=== PATIENT | female | born 1995 | race Caucasian/White ===

== ENCOUNTER 2021-11-09 14:32 | Emergency (ER) | payer OTHER, SELFPAY ==
[2021-11-09 15:13] VITALS: BP 134/98; PULSE 80; RESP 20; TEMP 36; O2SAT 95; BMI 24.2
--- NOTE | 2021-11-09 16:57 | ED.ALLEREA ---
HPI - Allergic Reaction General Chief complaint: Allergic Reaction Stated complaint: allergic reaction? Time Seen by Provider: 11/09/21 16:40 Source: patient Mode of arrival: ambulatory Limitations: no limitations History of Present Illness HPI narrative: 25 y/o female presenting with diffuse pruritic rash all over her body for the last 2.5 days. It has been waxing and waning and she has been taking Benadryl 50 mg every 4-6 hours. She reports today when she woke up she had the rash on her face and her right ear was swollen, almost to the point where it was shut she could not hear. She reports this afternoon she started feeling tingling in her throat. She denies any sensation of throat swelling and she has no lip or tongue swelling. She denies any history of allergies or reactions like this in the past. She denies any new soaps, detergents, lotions, creams. She has not slept anywhere but her own bed. No new foods. MD complaint: allergic reaction and hives Onset (ago): day(s) (2.5 ) Exposure: unknown Symptoms: rash, itching and facial swelling Severity: severe Treatment prior to arrival: benadryl Previous Allergic Reaction History: none Related Data Previous Rx's Medication Instructions Recorded famotidine 40 mg tablet (Pepcid) 40 mg PO DAILY #10 tab 11/09/21 prednisone 50 mg tablet 50 mg PO DAILY #7 tab 11/09/21 Allergies Allergy/AdvReac Type Severity Reaction Status Date / Time lactose Allergy Unknown Uncoded 05/18/18 00:00 Review of Systems Review of Systems: Constitutional: No Fever, No Chills ENT/Mouth: No sore throat, No Rhinorrhea, No Swallowing Difficulty, +ear pain & swelling Eyes: No Eye Pain, + Swelling, No Redness Cardiovascular: No Chest Pain, No SOB Respiratory: No Cough, No Sputum, No Wheezing, No dyspnea Gastrointestinal: No Nausea, No Vomiting, No Diarrhea, No abdominal Pain Genitourinary: No Dysuria, No Urinary Frequency, No Hematuria Musculoskeletal: No joint pain, No Myalgias Skin: No Skin Lesions, + rash Neuro: No Weakness, No Numbness, No Dizziness, No Headache Heme/Lymph: No Bruising, No Lymphadenopathy PMFSH Past Medical History Medical History (Updated 11/09/21 @ 17:25 by DORA Paniagua) Raynaud disease Surgical History (Updated 11/09/21 @ 15:17 by Aleshia Osei) H/O wisdom tooth extraction Social History Social History Advance Directives: No Advance Directives Information Provided: Yes Patient : No Physical Exam Vital Signs: Vital Signs: Last Vital Signs Temp 96.8 F 11/09/21 15:13 Pulse 80 11/09/21 15:13 Resp 20 11/09/21 15:13 BP 134/98 H 11/09/21 15:13 Pulse Ox 95 11/09/21 15:13 BMI result Body Mass Index 24.2 Appearance: Alert. Oriented X3. No acute distress. Eyes: Upper eyelids is puffy bilaterally. Pupils equal, round and reactive to light. EOMI. ENT: Pharynx normal. No swelling of the lips, tongue. Airway patent. Pain of the right ear with some mild swelling. Normal TMs bilaterally. Neck: Normal inspection. Neck supple. CVS: Normal heart rate and rhythm. Pulses normal. Respiratory: No respiratory distress. Breath sounds normal. Skin: Skin warm and dry. Normal skin color. Normal skin turgor. There is a diffuse urticarial type rash all over her trunk, bilateral upper extremities and lower extremities. Extremities: No lower extremity edema. Extensive urticarial rash on the lower and upper extremities. Neuro: Oriented X 3. Grossly normal, nonfocal Course Course Course Narrative: 25-year-old female presenting with allergic reaction that has been waxing and waning for the last 2 and half days. Today she started feeling sensation of throat tingling. She is in no respiratory distress and protecting her airway. No signs of airway edema or swelling. Given the extent of her rash in her current symptoms will still place an IV and give IV steroids, Benadryl, Pepcid. Will monitor closely in the emergency room. Reevaluation(s) Reevaluation #1: Significant improvement in her rash. She no longer has sensation of any tingling in her throat. At this time patient is stable for discharge home with prescription for prednisone, Pepcid and continued Benadryl around the clock. Encouraged to f/u with her PCP. Stable for DC. Critical Care Time Critical Care Time Critical Care Time: Yes Total Critical Care Time: 38 Attestation: I have personally provided critical care time exclusive of time spent on separately billable procedures. Time includes review of lab data, radiology results, frequent bedside re-evaluation, and monitoring for potential decompensation. Intervention performed as documented. Discharge Plan Discharge Clinical Impression: Urticaria Allergic reaction Qualifiers: Encounter type: initial encounter Qualified Code(s): T78.40XA - Allergy, unspecified, initial encounter Patient Disposition: Home, Self-Care Instructions: Urticaria (ED), General Allergic Reaction (ED) Additional Instructions: Take the prescribed steroid medication for your allergic reaction. Continue to take Benadryl 50 mg every 6 hours. Recommend also adding Pepcid, sent to your pharmacy as well. If you develop new or worsening symptoms call 911 or come back to the ER for further evaluation. Prescriptions: New prednisone 50 mg tablet 50 mg PO DAILY Qty: 7 RF: 0 famotidine [Pepcid] 40 mg tablet 40 mg PO DAILY Qty: 10 RF: 0
[2021-11-09] MEDS: diphenhydrAMINE HCL 50 MG/ML VIAL IVPUSH (17:14)
[2021-11-09] MEDS: methylPREDNISolone Sod Succ 125 MG/2 ML VIAL IVPUSH (17:14)
[2021-11-09] MEDS: Famotidine/PF 20 MG/2 ML VIAL IVPUSH (17:14)
== END 2021-11-09 18:47 | disposition home or self-care (01) ==
PROVIDERS: Emergency Provider Internal Medicine; PCP Family Medicine
DX: T78.40XA Allergy, unspecified, initial encounter (principal); L50.9 Urticaria, unspecified; X58.XXXA Exposure to other specified factors, initial encounter
CPT/HCPCS: 96374; 96375; 99283; 99291; J1200; J2930

== ENCOUNTER 2022-01-11 07:10 | Outpatient (REF) | payer OTHER, SELFPAY ==
[2022-01-11 07:35] LABS: MANUAL DIFF FLAG NO
[2022-01-11 07:45] LABS: Basophils Absolute Auto 0.1 X10*3/uL (0.0-0.2); Basophils Percent Auto 1.3 % (0-2); Eosinophils Absolute Auto 0.2 X10*3/uL (0.0-0.4); Eosinophils Percent Auto 2.5 % (0-4); Hemoglobin 13.5 g/dl (12.0-16.0); Imm Gran Abs Auto 0.02 X10*3/uL (0.00-0.03); Imm Gran Pct Auto 0.3 % (0.0-0.4); Lymphocytes Absolute Auto 1.9 X10*3/uL (1.2-4.9); Lymphocytes Percent Auto 27.3 % (20-40); Mean Corpuscular HGB Conc 32.9 g/dl (31.0-35.0); Mean Corpuscular Hemoglobin 30.4 pg (27.0-33.0); Mean Corpuscular Volume 92.3 fL (80.0-98.0); Mean Platelet Volume 10.6 fL (9.4-12.3); Monocytes Absolute Auto 0.6 X10*3/uL (0.1-1.2); Monocytes Percent Auto 8.5 % (2-11); Neutrophils Absolute Auto 4.2 x10*3/uL (2.0-8.3); Neutrophils Percent Auto 60.1 % (45-73); Platelet Count 237 X10*3/uL (160-400); Red Blood Count 4.44 X10*6/uL (4.20-5.50); White Blood Count 6.9 X10*3/uL (4.8-10.8)
[2022-01-11 08:20] LABS: Alanine Aminotransferase 10 U/L (0-31); Albumin Level 4.5 g/dL (3.5-5.0); Alkaline Phosphatase 53 U/L (39-117); Anion Gap 15 (12-20); Aspartate Amino Transferase 16 U/L (5-31); Bilirubin Total 2.1 mg/dL (0.0-1.0); Blood Urea Nitrogen 12 mg/dL (9-16); Calcium 9.5 mg/dL (8.4-10.2); Carbon Dioxide 23 mmol/L (22-29); Chloride 107 mmol/L (96-108); Cholesterol 168 mg/dL; Estimated Glomerular Filt Rate > 60; Glucose Fasting 89 mg/dL (60-99); HDL Cholesterol 79 mg/dL; LDL Cholesterol Calculated 75 mg/dl; Potassium 4.4 mmol/L (3.3-5.1); Rheumatoid Factor < 15.0 IU/mL (<15.0); Sodium 141 mmol/L (135-145); Total Protein 7.7 g/dL (6.5-8.0); Triglycerides 72 mg/dL
[2022-01-11 08:26] LABS: Erythrocyte Sedimentation Rate 2 MM/HR (0-20)
[2022-01-11 08:38] LABS: Syphilis Screen Nonreactive (Nonreactive)
[2022-01-11 08:39] LABS: HBS Num1 35.26 mIU/mL (0-7.99); HBc Num1 0.08 S/CO (0.00-0.79); Hepatitis B Core Antibody Nonreactive (Nonreactive); ~HepC Num1 0.29 S/CO (0.00-0.79); ~Hepatitis B Surface Antibody REACTIVE (Nonreactive); ~Hepatitis C Antibody Nonreactive (Nonreactive)
[2022-01-11 08:43] LABS: HBsAGNum1 0.19 S/CO (0.00-0.99); HIV AB/AG Nonreactive (Nonreactive); HIV Num 1 0.05 S/CO (0.00-0.99); Hepatitis B Surface Antigen Negative (Negative)
[2022-01-11 08:45] LABS: TSH reflex Free T4 1.89 uIU/mL (0.32-4.0)
[2022-01-13 16:22] LABS: Cyclic Citrullinated Peptide <16 UNITS
[2022-01-13 18:06] LABS: CRP High Sensitivity 0.3 mg/L
== END 2022-01-11 07:11 | disposition home or self-care (01) ==
LOC: HO.LAB 07:10
PROVIDERS: PCP Family Medicine; Visit Provider Family Medicine
DX: Z00.00 Encounter for general adult medical examination without abnormal findings (principal); Z11.3 Encounter for screening for infections with a predominantly sexual mode of transmission; Z11.4 Encounter for screening for human immunodeficiency virus [HIV]; T78.40XA Allergy, unspecified, initial encounter; Z82.61 Family history of arthritis
CPT/HCPCS: 36415; 80053; 80061; 84443; 85025; 85652; 86141; 86200; 86431; 86704; 86706; 86780; 86803; 87340; 87389

== ENCOUNTER 2022-01-19 15:09 | Outpatient (REF) | payer OTHER, SELFPAY ==
[2022-01-19 16:02] LABS: Appearance Urine CLEAR; Color Urine YELLOW; Glucose Urine UA NEG (NEG); Leukocyte Esterase Urine 1+ (NEG); Nitrite Urine NEG (NEG); PH 6.5 (5.0-8.0); Specific Gravity - Urine <= 1.005 (1.005-1.025); Urine Blood 3+ (NEG); Urine Ketones 5 MG/DL (NEG); Urine Protein NEG (NEG-TRACE)
[2022-01-19 16:20] LABS: Bacteria Urine 2+ /LPF; Squamous Epithelial Cell Urine 3+ /LPF
== END 2022-01-19 15:10 | disposition home or self-care (01) ==
LOC: HO.LAB 15:09
PROVIDERS: PCP Family Medicine; Visit Provider Family Medicine
DX: Z00.00 Encounter for general adult medical examination without abnormal findings (principal)
CPT/HCPCS: 81001; 81003

== ENCOUNTER 2022-01-27 15:36 | Outpatient (REF) | payer OTHER, SELFPAY ==
[2022-01-27 16:39] LABS: Alanine Aminotransferase 11 U/L (0-31); Albumin Level 4.6 g/dL (3.5-5.0); Alkaline Phosphatase 49 U/L (39-117); Anion Gap 12 (12-20); Aspartate Amino Transferase 13 U/L (5-31); Bilirubin Total 1.6 mg/dL (0.0-1.0); Blood Urea Nitrogen 7 mg/dL (9-16); Calcium 10.1 mg/dL (8.4-10.2); Carbon Dioxide 26 mmol/L (22-29); Chloride 106 mmol/L (96-108); Estimated Glomerular Filt Rate > 60; Glucose Random 115 mg/dL (60-115); Potassium 4.2 mmol/L (3.3-5.1); Sodium 140 mmol/L (135-145); Total Protein 7.4 g/dL (6.5-8.0)
[2022-01-27 17:04] LABS: Appearance Urine CLEAR; Color Urine YELLOW; Glucose Urine UA NEG (NEG); Leukocyte Esterase Urine NEG (NEG); Nitrite Urine NEG (NEG); Specific Gravity - Urine <= 1.005 (1.005-1.025); Urine Blood 1+ (NEG); Urine Ketones 5 MG/DL (NEG); Urine Protein NEG (NEG-TRACE)
[2022-01-27 17:17] LABS: Squamous Epithelial Cell Urine 3+ /LPF; WBC Urine 0 /HPF (0-4)
== END 2022-01-27 15:37 | disposition home or self-care (01) ==
LOC: HO.LAB 15:36
PROVIDERS: PCP Family Medicine; Visit Provider Family Medicine
DX: R17 Unspecified jaundice (principal)
CPT/HCPCS: 36415; 80053; 81001; 81003

== ENCOUNTER 2024-05-29 16:25 | Outpatient (AMB) | payer OTHER, SELFPAY ==
--- NOTE | 2024-05-29 16:24 | MHC.OFFVISPS ---
Intake Intake Visit Reasons: consultation Allergies lactose Allergy (Unknown, Uncoded 05/17/24 16:18) Unknown Medication List - Last Reconciled 05/29/24 by Samantha Azar APRN citalopram 20 mg PO DAILY 30 days hydroxyzine HCl 50 mg PO TID PRN 30 days HPI- Psychiatric Chief Complaint: consultation HPI Narrative: pt is referred by pcp for evaluation of increased depression and anxiety, stress related to work. Denies SI, HI. Pt asked PCP Dr. Jeffery for an FMLA from her job. Pt is currently on medication with some relief. She is not current receiving outpatient services, but is interested in establishing with a therapist. Pt comes to appt today stating she feels a little less overwhelmed since starting citalopram. she reports anxious since childhood; reports dx of ADHD age 6 [address] when in school; she took adderall and ritlain during childhood. she reports she was crying every bight. she was working 2 jobs until rcently taking medical leave. 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 she desribes a histrou of working 4 jobs while in underd=grad school and finishing her degree early and then going to grad school right away and continuing to work 3 jobs; she says she used coffee to stay awake and drank alcohol to go to sleep; she also reports using THC daily until May 17 when she stopped cold turkey; she reports she only drinks socially now 3-4 glasses of wine 3-4 times a week. She has pressured speech n session, makes jokes. she describes mind racing, inability to fall sleep sleeping short periods of time. feeling overwhelmed; she thinks ADHD symptoms are making it hard fro her to function at work; Her PHQ9 = 16.5 snd her GAD7= 13. Past Psychiatric History: tx ADHD outpt as child. Subjective Subjective Subjective Medication Compliance: Yes Side effects from medications: No Review of Systems Medical Review of Systems: unchanged Mental Status Exam Mental Status Exam Patient Appearance: Well Grooomed and Appropriate Patient Orientation: Person, Place, Time and Situation Level of Consciousness: Awake Patient Behavior: Appropriate, Talkative and Cooperative Mood Description: Anxious, Sad and Expansive Affect Description: Cheerful, Anxious and Sad Patient Cognition Impaired: No Ability to Follow Directions: Good Speech Pattern: Rapid Memory Description: Intact Hallucinations: None Delusions: Not Present Thought Process: Racing Thought Content: positive for Loose Associations Judgement: Fair Assessment and Plan Assessment & Plan (1) Difficulty concentrating: Status: Acute Code(s): R41.840 - Attention and concentration deficit (2) Anxiety with depression: Status: Acute Code(s): F41.8 - Other specified anxiety disorders Plan rule out Bipolar Disorder rule out ADHD rule out alcohol induced mood dissorder no changes to meds today discussed rule out Bipolar Disorder with patient gave her education info about bipolar do and mood disorder questionnaire will meet with patient in 2 week to further eval Counseling and coordination of Care Medication management counseling: Effectiveness, Side effects, Dosing range, Duration, Drug interaction and Adherence Diagnosis and Prognosis Counseling: Accuracy of diagnosis, Prognosis over time, Impact of diagnosis on life functions, Impact of family relationship, Problematic behaviors secondary to diagnosis and Adequacy of current interventions Details: I spent 60 minutes reviewing the record, seeing the patient and documenting in the medical record. Counseling provided to the patient/caregiver as outlined below. Addressed patient/caregiver concerns regarding current medication regime including effective adherence. Addressed patient/caregiver concerns regarding diagnosis and prognosis including accuracy of diagnosis, prognosis over time, impact of diagnosis. Addressed patient/caregiver concerns regarding impact of recent stressors. 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[employer] Current occupational exposures/hazards: No Cognitive needs: No Hearing needs: No Vision needs: Yes Social History: lives with brother and his partner and her BF Substance History: ETOH age 18- present 2-3 glasses of wine and gin cocktails mostly to sleep per pt; THC daily until May 17 2024 Trauma History: very difficult childhood - mother with depression Coding Level of Care Code Psych Diag Eval w/Med (36269) Diagnoses Difficulty concentrating R41.840 Anxiety with depression F41.8
== END 2024-05-29 17:44 | disposition home or self-care (01) ==
PROVIDERS: PCP Family Medicine; Visit Provider Clinical Nurse Specialist Psychiatric/Mental Health
DX: F41.8 Other specified anxiety disorders (principal); R41.840 Attention and concentration deficit
CPT/HCPCS: 99205

== ENCOUNTER → 2024-05-29 16:25 | Outpatient (BNVA) | payer OTHER, SELFPAY | PROVIDERS: PCP Family Medicine; Visit Provider Clinical Nurse Specialist Psychiatric/Mental Health ==

== ENCOUNTER 2024-06-12 11:45 | Outpatient (REF) | payer OTHER, SELFPAY ==
[2024-06-12 12:05] LABS: MANUAL DIFF FLAG NO
[2024-06-12 12:47] LABS: Basophils Absolute Auto 0.1 X10*3/uL (0.0-0.2); Basophils Percent Auto 1.6 % (0-2); Eosinophils Absolute Auto 0.1 X10*3/uL (0.0-0.4); Eosinophils Percent Auto 2.2 % (0-4); Hematocrit 38.1 % (37.0-47.0); Hemoglobin 12.9 g/dl (12.0-16.0); Imm Gran Abs Auto 0.01 X10*3/uL (0.00-0.03); Imm Gran Pct Auto 0.2 % (0.0-0.4); Lymphocytes Absolute Auto 1.5 X10*3/uL (1.2-4.9); Lymphocytes Percent Auto 26.6 % (20-40); Mean Corpuscular HGB Conc 33.9 g/dl (31.0-35.0); Mean Corpuscular Hemoglobin 29.3 pg (27.0-33.0); Mean Corpuscular Volume 86.4 fL (80.0-98.0); Mean Platelet Volume 10.6 fL (9.4-12.3); Monocytes Absolute Auto 0.5 X10*3/uL (0.1-1.2); Monocytes Percent Auto 8.3 % (2-11); Neutrophils Absolute Auto 3.4 x10*3/uL (2.0-8.3); Neutrophils Percent Auto 61.1 % (45-73); Platelet Count 202 X10*3/uL (160-400); Red Blood Count 4.41 X10*6/uL (4.20-5.50); Red Cell Distribution Width 12.7 % (11.0-16.0); White Blood Count 5.6 X10*3/uL (4.8-10.8)
[2024-06-12 13:12] LABS: Appearance Urine Clear; Color Urine Yellow; Glucose Urine UA Negative (Negative); Leukocyte Esterase Urine Small (1+) (Negative); Nitrite Urine Negative (Negative); PH 6.5 (5.0-9.0); Specific Gravity - Urine 1.015 (1.005-1.025); UMIC TRIGGER UA YES; Urine Blood Negative (Negative); Urine Ketones Negative (Negative); Urine Protein Negative (Neg-Trace)
[2024-06-12 13:21] LABS: Bacteria Urine 2+ (None Seen); Hyaline Casts Urine 0-2 /LPF (0-2); RBC Urine 0-2 /HPF (0-2); WBC Urine 0-5 /HPF (0-5)
[2024-06-12 14:08] LABS: Alanine Aminotransferase 31 U/L (0-31); Albumin Level 4.4 g/dL (3.5-5.0); Alkaline Phosphatase 46 U/L (39-117); Anion Gap 11 (12-20); Aspartate Amino Transferase 21 U/L (5-31); Bilirubin Total 1.3 mg/dL (0.0-1.0); Blood Urea Nitrogen 8 mg/dL (9-16); Calcium 9.5 mg/dL (8.4-10.2); Carbon Dioxide 26 mmol/L (22-29); Chloride 107 mmol/L (96-108); Cholesterol 182 mg/dL (<200); Estimated Glomerular Filt Rate > 60; Glucose Fasting 90 mg/dL (60-99); HDL Cholesterol 72 mg/dL (>40); LDL Cholesterol Calculated 97 mg/dL (<100); Potassium 4.1 mmol/L (3.3-5.1); Sodium 140 mmol/L (135-145); TSH reflex Free T4 1.67 uIU/mL (0.32-4.0); Total Protein 7.2 g/dL (6.5-8.0); Triglycerides 65 mg/dL (<150); Vitamin D 25-OH Total 17.2 ng/mL (>30)
[2024-06-12 14:20] LABS: Creatinine Urine 177.89 mg/dL; Microalbum/Creatinine Ratio Ur 3.3 ug/mg cr (<30)
[2024-06-12 14:25] LABS: Folate 5.7 ng/mL (> or = 4.0); Vitamin B12 402 pg/mL (200-900)
== END 2024-06-12 11:46 | disposition home or self-care (01) ==
LOC: HO.LAB 11:45
PROVIDERS: PCP Family Medicine; Visit Provider Family Medicine
DX: Z00.00 Encounter for general adult medical examination without abnormal findings (principal); I10 Essential (primary) hypertension; E53.8 Deficiency of other specified B group vitamins; E55.9 Vitamin D deficiency, unspecified
CPT/HCPCS: 36415; 80053; 80061; 81001; 81003; 82043; 82306; 82570; 82607; 82746; 84443; 85025

== ENCOUNTER 2024-06-14 09:14 | Outpatient (AMB) | payer OTHER, SELFPAY ==
--- NOTE | 2024-06-14 09:18 | A.OFFPSYCH_ITS ---
Intake Intake Visit Reasons: f/u consultation Failure Analysis Technician Required: No Allergies lactose Allergy (Unknown, Uncoded 05/17/24 16:18) Unknown Medication List - Last Reconciled 06/14/24 by Samantha Azar APRN citalopram 20 mg PO DAILY 30 days hydroxyzine HCl 50 mg PO TID PRN 30 days HPI- Psychiatric Chief Complaint: f/u consultation HPI Narrative: pt reports much calmer overall; less emotionally reactive. reviewed information re: bipolar disorder and feels she does not meet criteria. feels she has better impulse control and less intense ups and downs. pt not sleeping well even with 150mg of hydroxyzine. pt reports increase startle and has a tremors bilat in bernard ds comes and goes- observed today; discussed alcohol use again today; pt drinking much less 2-3 drinks 4-5 times a week but with friends and not alone. she feels she can cut back more on own. discussed option of naltrexone for cravings. she declines at this time. no SI or HI feels she isn't ready to go back to work. Discussed addition of trazodone and magnesium glycinate for sleep and mood Past Psychiatric History: tx ADHD outpt as child. Subjective Subjective Subjective Medication Compliance: Yes Side effects from medications: Yes (possible side effects from celexa ? tremor) Review of Systems Medical Review of Systems: unchanged Mental Status Exam Mental Status Exam Patient Appearance: Well Grooomed and Appropriate Patient Orientation: Person, Place, Time and Situation Level of Consciousness: Awake Patient Behavior: Appropriate Mood Description: Anxious Affect Description: Anxious Patient Cognition Impaired: No Ability to Follow Directions: Fair Speech Pattern: Clear Memory Description: Intact Hallucinations: None Delusions: Not Present Thought Process: Intact Thought Content: positive for Intact Judgement: Fair Assessment and Plan Assessment & Plan (1) Anxiety with depression: Status: Acute Code(s): F41.8 - Other specified anxiety disorders (2) Difficulty concentrating: Status: Acute Code(s): R41.840 - Attention and concentration deficit Plan rule out alcohol abuse; rule out ADHD Medications: New trazodone 50 mg orally Take 1/2 tablet at bedtime as needed ; may take an extra 1/2 if still awake in one hour PRN; 90 tabs 0RF sleep Counseling and coordination of Care Pt. Self Management counseling: Mod caffeine/ETOH intake, Sleep hygiene and General coping skills Medication management counseling: Effectiveness, Side effects, Dosing range, Duration, Drug interaction and Adherence Diagnosis and Prognosis Counseling: Accuracy of diagnosis, Prognosis over time, Impact of diagnosis on life functions, Impact of family relationship, Problematic behaviors secondary to diagnosis and Adequacy of current interventions Details: I spent 40 minutes reviewing the record, seeing the patient and documenting in the medical record. Counseling provided to the patient/caregiver as outlined below. Addressed patient/caregiver concerns regarding current medication regime including effective adherence. Addressed patient/caregiver concerns regarding diagnosis and prognosis including accuracy of diagnosis, prognosis over time, impact of diagnosis. Addressed patient/caregiver concerns regarding impact of recent stressors. 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[employer] Current occupational exposures/hazards: No Cognitive needs: No Hearing needs: No Vision needs: Yes Social History: lives with brother and his partner and her BF Substance History: ETOH age 18- present 2-3 glasses of wine and gin cocktails mostly to sleep per pt; THC daily until May 17 2024 Trauma History: very difficult childhood - mother with depression Coding Level of Care Code Est Pt Level 4 (09576) Therapy 30m w/E&M (48935) Diagnoses Anxiety with depression F41.8 Difficulty concentrating R41.840 Comment motivational interviewing re: alcohol use; problem solving sleep hygiene
== END 2024-06-14 09:48 | disposition home or self-care (01) ==
LOC: HO.HOP 09:14
PROVIDERS: PCP Family Medicine; Visit Provider Clinical Nurse Specialist Psychiatric/Mental Health
DX: F41.8 Other specified anxiety disorders (principal); R41.840 Attention and concentration deficit
CPT/HCPCS: 90833; 99214

== ENCOUNTER → 2024-06-14 09:14 | Outpatient (BNVA) | payer OTHER, SELFPAY | PROVIDERS: PCP Family Medicine; Visit Provider Clinical Nurse Specialist Psychiatric/Mental Health ==

== ENCOUNTER 2024-06-21 11:59 | Outpatient (AMB) | payer OTHER, SELFPAY ==
--- NOTE | 2024-06-21 12:08 | A.OFFPC_ITS ---
Vital Signs 06/21/24 12:16 06/21/24 13:05 Height 5 ft 6.54 in Weight 147 lb BMI 23.3 BP 98/60 120/68 Blood Pressure Location Lt brachial Lt brachial Position Sitting Sitting Respiration 16 Pulse 83 Pulse Source Pulse Oximeter Temp 97.8 F Temp Source Tympanic Pulse Oximetry (%) 98 Oxygen Delivery Method Room Air Intake Visit Reasons: F/U Anxiety/Depression/ FMLA paperwork Intake Note: FMLA PAPERWORK Allergies lactose Allergy (Unknown, Uncoded 05/17/24 16:18) Unknown Medication List - Last Reconciled 06/21/24 by Cal Jeffery MD cholecalciferol (vitamin D3) 1,250 mcg PO QWEEK 28 days citalopram 20 mg PO DAILY 30 days hydroxyzine HCl 50 mg PO TID PRN 30 days trazodone 50 mg orally Take 1/2 tablet at bedtime as needed ; may take an extra 1/2 if still awake in one hour PRN; Tobacco use date assessed: 05/17/24 Dental Screening Dental Screen Date: 05/17/24 HPI F/U Anxiety/Depression/ FMLA paperwork HPI Details 28 y/o female presents to f/u depression /anxiety. Pt had worsening anxiety/depression with likely acute adjustment disorder as well as secondary to severe stressors at work. Had recommended she take a leave of absence from work. She is on citalopram, hydroxyzine, trazodone for mood. She continues to work with psychiatry Samantha Azar. Pt notes she would like to get into therapy before she goes back to work. She is unsure when she will see a therapist. Pt reports some shakiness. HPI Comments History of Present Illness Details Documentation assistance for Cal Jeffery MD, was provided by Lino Hill,? Passenger Train Braker on 06/21/2024 at 12:36 PM EST. I, Dr. Jeffery, have read, observed, and verified documentation. 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[employer] Current occupational exposures/hazards: No Cognitive needs: No Hearing needs: No Vision needs: Yes Questionnaire Thrive Questionnaire Date Thrive assessed: 05/17/24 LULU-7 AMB Questionnaire LULU-7 Date LULU - 7 assessed: 05/17/24 Source: Developed by Drs. Cody Valera, Katty Ramos, Ayan Yi and colleagues, with an educational aggie from [employer]. Review of Systems Const Denies chills, Denies fatigue, Denies fever(s), Denies headache(s) and Denies weakness ENT Denies dizziness and Denies headache(s) Card Denies chest pain, Denies lightheadedness, Denies dyspnea and Denies other (Palpitations) Resp Denies cough, Denies dyspnea, Denies wheezing and Denies other ( shortness of breath) Musc Denies numbness and Denies tingling Neuro Denies dizziness, Denies headache(s), Denies numbness, Denies tingling, Denies paresthesias and Denies weakness Psych Reports anxiety and Reports depression Endo Denies fatigue Aller/Immun Denies wheezing Physical exam (Primary Care) Vital Signs: Last Vital Signs Temp 97.8 F 06/21/24 12:16 Pulse 83 06/21/24 12:16 Resp 16 06/21/24 12:16 BP 98/60 06/21/24 12:16 Pulse Ox 98 06/21/24 12:16 Oxygen Delivery Method Room Air 06/21/24 12:16 BMI result Body Mass Index 23.3 Tobacco/Smoking Status: Tobacco use Status Tobacco use date assessed 05/17/24 06/21/24 12:08 Patient Tobacco Use Status Former Tobacco user 06/21/24 12:08 e-Cigarette/Vaping Use Former Use 06/21/24 12:08 Thrive Assessment: Date of Thrive Assessment Date Thrive assessed 05/17/24 06/21/24 12:08 Const General: no acute distress and well developed Nutritional Appearance: well nourished Orientation/consciousness: patient oriented x3 HENMT Head: Yes normocephalic and Yes atraumatic Eyes General: appearance normal, both eyes and all related structures Pupils: Equal, round and reactive pupils present EOM: EOMs intact bilaterally Resp Effort & Inspection: normal respiratory effort Auscultation: clear to auscultation bilaterally Cardio Rate: regular rate Rhythm: regular rhythm Heart sounds: S1 normal heart sound present, S2 normal heart sound present, no gallops, no murmurs and no rubs Neuro General: patient oriented x3 and gait normal Cranial nerves: Yes Equal, round and reactive pupils present Psych Affect: normal affect Assessment and Plan Assessment & Plan (1) Anxiety with depression: Code(s): F41.8 - Other specified anxiety disorders Plan: Ongoing?anxiety?and?depression. Somewhat?improved,?hydralazine?and?trazodone. She?now?has?a?psych?med?provider?managing?these. Still?not?able?to?function?at?work?and?she?still?does?not?have?a?therapist. Will?keep?her?out?of?work?for?another?2?months?wi th?dates?of?leave?from?05/17/2024?to?08/26/2024?and?anticipated?return?date?08/27. She?will?continue?to?follow?with?her?psych?med?provider?and?should?have?a?therap ist?by?than?as?I?feel?this?is?1?of?the?missing?pieces?of?her?care. Patient?is?not?going?to?bed?until?about?midnight?and?we?did?discuss?that?she?catrachito uld?work?on?sleep?hygiene?habits?and?consider?trying?to?pull?her?bedtime?earlier ?which?should?help?her?get?more?physiologic?sleep?and?feel?better?rested. (2) Shakiness: Code(s): R25.1 - Tremor, unspecified Plan: Improved Will?continue?to?follow Coding Level of Care Code Est Pt Level 3 (08920) Diagnoses Anxiety with depression F41.8 Shakiness R25.1
[2024-06-21 12:16] VITALS: BP 98/60; PULSE 83; RESP 16; TEMP 36.6; O2SAT 98; BMI 23.3
[2024-06-21 13:05] VITALS: BP 120/68
== END 2024-06-21 13:22 | disposition home or self-care (01) ==
PROVIDERS: PCP Family Medicine; Visit Provider Family Medicine
DX: F41.8 Other specified anxiety disorders (principal); R25.1 Tremor, unspecified
CPT/HCPCS: 99213

== ENCOUNTER 2024-06-25 13:45 | Outpatient (AMB) | payer OTHER, SELFPAY ==
--- NOTE | 2024-06-25 13:45 | MHC.OFFVISPS ---
Intake Intake Visit Reasons: f/u consultation Fruit Washer Required: No Allergies lactose Allergy (Unknown, Uncoded 05/17/24 16:18) Unknown Medication List - Last Reconciled 06/25/24 by Samantha Azar APRN cholecalciferol (vitamin D3) 1,250 mcg PO QWEEK 28 days citalopram 20 mg PO DAILY 30 days hydroxyzine HCl 50 mg PO TID PRN 30 days trazodone 50 mg orally Take 1/2 tablet at bedtime as needed ; may take an extra 1/2 if still awake in one hour PRN; HPI- Psychiatric Chief Complaint: f/u consultation HPI Narrative: pt reports anxiety reduced; still having trouble with sleep; up until 12- 2 am. struggles t wake in am; very vivid dreams. work has not been very supportive of her leave of absence; she is part of a work group text and her colleagues are all commenting on her ability to take such a long leave. she feels harassed and that she can not go back to work there. Discussed with patient using melatonin to shift her sleep initiation earlier. she will start by tring to get to bed by 12 and so will take the melatonin at 10pm. can shift even earlier if needed. Past Psychiatric History: tx ADHD outpt as child. Mental Status Exam Mental Status Exam Patient Appearance: Well Grooomed and Appropriate Patient Orientation: Person, Place, Time and Situation Level of Consciousness: Awake and Alert Patient Behavior: Appropriate and Restless Mood Description: Anxious Affect Description: Anxious Patient Cognition Impaired: No Ability to Follow Directions: Good Speech Pattern: Clear Hallucinations: None Delusions: Not Present Thought Process: Intact Thought Content: positive for Intact and positive for Loose Associations Judgement: Fair Assessment and Plan Assessment & Plan (1) LULU (generalized anxiety disorder): Status: Acute Code(s): F41.1 - Generalized anxiety disorder Plan rule out ADHD continue celexa continue trazodone continue hydroxyzine add melatonin 1 -3 mg at 10pm Counseling and coordination of Care Pt. Self Management counseling: Maintenance-social rhythm, Mod caffeine/ETOH intake, Nutrition education and improvement, Sleep hygiene and General coping skills Medication management counseling: Effectiveness, Side effects, Dosing range, Duration, Drug interaction and Adherence Diagnosis and Prognosis Counseling: Accuracy of diagnosis, Prognosis over time, Impact of diagnosis on life functions, Impact of family relationship, Problematic behaviors secondary to diagnosis and Adequacy of current interventions Details: I spent 30 minutes reviewing the record, seeing the patient and documenting in the medical record. Counseling provided to the patient/caregiver as outlined below. Addressed patient/caregiver concerns regarding current medication regime including effective adherence. Addressed patient/caregiver concerns regarding diagnosis and prognosis including accuracy of diagnosis, prognosis over time, impact of diagnosis. Addressed patient/caregiver concerns regarding impact of recent stressors. 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
== END 2024-06-25 14:12 | disposition home or self-care (01) ==
LOC: HO.HOP 13:45
PROVIDERS: PCP Family Medicine; Visit Provider Clinical Nurse Specialist Psychiatric/Mental Health
DX: F41.1 Generalized anxiety disorder (principal)
CPT/HCPCS: 99214

== ENCOUNTER → 2024-06-25 13:45 | Outpatient (BNVA) | payer OTHER, SELFPAY | PROVIDERS: PCP Family Medicine; Visit Provider Clinical Nurse Specialist Psychiatric/Mental Health ==

== ENCOUNTER 2024-07-13 14:48 | Outpatient (AMB) | payer OTHER, SELFPAY ==
--- NOTE | 2024-07-13 14:59 | MHC.OFFVISPS ---
Intake Intake Visit Reasons: f/u consultation Allergies lactose Allergy (Unknown, Uncoded 05/17/24 16:18) Unknown Medication List - Last Reconciled 07/13/24 by Samantha Azar APRN cholecalciferol (vitamin D3) 1,250 mcg PO QWEEK 28 days citalopram 20 mg PO DAILY 30 days hydroxyzine HCl 50 mg PO TID PRN 30 days trazodone 50 mg orally Take 1/2 tablet at bedtime as needed ; may take an extra 1/2 if still awake in one hour PRN; HPI- Psychiatric Chief Complaint: f/u consultation HPI Narrative: mehdi continues to have some depression and poor concentration; she reports several days wthout sleep; she reports feeling bad about herself and triggered by staying with her sister; she is vague at times; makes loose associations; feels that things are not real sometimes; she often has very vvis dreams whee she can not tell if real or not; has sensation she is waking up even when not sleeping .pt has had several day of feeling on edge. Past Psychiatric History: tx ADHD outpt as child. Subjective Subjective Subjective Medication Compliance: Yes Side effects from medications: No Review of Systems Medical Review of Systems: unchanged Mental Status Exam Mental Status Exam Patient Appearance: Appropriate Patient Orientation: Person, Place, Time and Situation Level of Consciousness: Awake and Appropriate Patient Behavior: Appropriate and Distractible Mood Description: Anxious and Flat Affect Description: Anxious and Flat Patient Cognition Impaired: Yes Ability to Follow Directions: Good Speech Pattern: Rambling Memory Description: Intact Hallucinations: None Delusions: Not Present Perceptual Disturbances: Derealization Thought Process: Distracted Thought Content: positive for Loose Associations Judgement: Fair Assessment and Plan Assessment & Plan (1) LULU (generalized anxiety disorder): Status: Acute Code(s): F41.1 - Generalized anxiety disorder Plan rule out PTSD with derealization, rule out Bipolar Disorder, rule out OCD, rule out ADHD Medications: New risperidone 0.25 mg PO BEDTIME 30 tabs 0RF Counseling and coordination of Care Pt. Self Management counseling: Mod caffeine/ETOH intake, Sleep hygiene and General coping skills Medication management counseling: Effectiveness, Side effects, Dosing range and Duration Diagnosis and Prognosis Counseling: Accuracy of diagnosis, Prognosis over time, Impact of diagnosis on life functions, Impact of family relationship, Problematic behaviors secondary to diagnosis and Adequacy of current interventions Details: I spent 45 minutes reviewing the record, seeing the patient and documenting in the medical record. Counseling provided to the patient/caregiver as outlined below. Addressed patient/caregiver concerns regarding current medication regime including effective adherence. Addressed patient/caregiver concerns regarding diagnosis and prognosis including accuracy of diagnosis, prognosis over time, impact of diagnosis. Addressed patient/caregiver concerns regarding impact of recent stressors. 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[employer] Current occupational exposures/hazards: No Cognitive needs: No Hearing needs: No Vision needs: Yes Social History: lives with brother and his partner and her BF Substance History: ETOH age 18- present 2-3 glasses of wine and gin cocktails mostly to sleep per pt; THC daily until May 17 2024 Trauma History: very difficult childhood - mother with depression Coding Level of Care Code Est Pt Level 5 (39643) Diagnoses ULLU (generalized anxiety disorder) F41.1
== END 2024-07-13 15:50 | disposition home or self-care (01) ==
LOC: HO.HOP 14:48
PROVIDERS: PCP Family Medicine; Visit Provider Clinical Nurse Specialist Psychiatric/Mental Health
DX: F41.1 Generalized anxiety disorder (principal)
CPT/HCPCS: 99215

== ENCOUNTER → 2024-07-13 14:48 | Outpatient (BNVA) | payer OTHER, SELFPAY | PROVIDERS: PCP Family Medicine; Visit Provider Clinical Nurse Specialist Psychiatric/Mental Health ==

== ENCOUNTER 2024-07-27 10:28 | Outpatient (AMB) | payer OTHER, SELFPAY ==
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
== END 2024-07-27 11:36 | disposition home or self-care (01) ==
LOC: HO.HOP 10:28
PROVIDERS: PCP Family Medicine; Visit Provider Clinical Nurse Specialist Psychiatric/Mental Health
DX: F41.1 Generalized anxiety disorder (principal); F43.12 Post-traumatic stress disorder, chronic; F90.2 Attention-deficit hyperactivity disorder, combined type
CPT/HCPCS: 99215

== ENCOUNTER → 2024-07-27 10:28 | Outpatient (BNVA) | payer OTHER, SELFPAY | PROVIDERS: PCP Family Medicine; Visit Provider Clinical Nurse Specialist Psychiatric/Mental Health ==

== ENCOUNTER 2024-08-17 14:29 | Outpatient (AMB) | payer OTHER, SELFPAY ==
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
== END 2024-08-17 15:23 | disposition home or self-care (01) ==
LOC: HO.HOP 14:29
PROVIDERS: PCP Family Medicine; Visit Provider Clinical Nurse Specialist Psychiatric/Mental Health
DX: F90.2 Attention-deficit hyperactivity disorder, combined type (principal); F43.12 Post-traumatic stress disorder, chronic; F41.1 Generalized anxiety disorder; F10.10 Alcohol abuse, uncomplicated
CPT/HCPCS: 99215

== ENCOUNTER → 2024-08-17 14:29 | Outpatient (BNVA) | payer OTHER, SELFPAY | PROVIDERS: PCP Family Medicine; Visit Provider Clinical Nurse Specialist Psychiatric/Mental Health ==

== ENCOUNTER 2024-08-22 11:36 | Outpatient (AMB) | payer OTHER, SELFPAY ==
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
[2024-08-22 11:50] VITALS: BP 119/71; PULSE 86; RESP 16; TEMP 36.7; O2SAT 99; BMI 24.2
== END 2024-08-22 12:32 | disposition home or self-care (01) ==
PROVIDERS: PCP Family Medicine; Visit Provider Family Medicine
DX: F41.1 Generalized anxiety disorder (principal); F90.2 Attention-deficit hyperactivity disorder, combined type; M24.9 Joint derangement, unspecified; L71.9 Rosacea, unspecified

== ENCOUNTER → 2024-08-22 11:36 | Outpatient (BNVA) | payer OTHER, SELFPAY | PROVIDERS: PCP Family Medicine; Visit Provider Family Medicine | DX: F41.1 Generalized anxiety disorder (principal); F90.2 Attention-deficit hyperactivity disorder, combined type; M24.9 Joint derangement, unspecified; L71.9 Rosacea, unspecified | CPT/HCPCS: 96127 ==

== ENCOUNTER 2024-08-22 12:47 | Outpatient (REF) | payer OTHER, SELFPAY ==
[2024-08-22 14:22] LABS: Appearance Urine Clear; Color Urine Yellow; Glucose Urine UA Negative (Negative); Leukocyte Esterase Urine Negative (Negative); Nitrite Urine Negative (Negative); Specific Gravity - Urine <= 1.005 (1.005-1.025); Urine Blood Negative (Negative); Urine Ketones Negative (Negative); Urine Protein Negative (Neg-Trace)
[2024-08-22 15:03] LABS: Anion Gap 11 (12-20); Blood Urea Nitrogen 11 mg/dL (9-16); Calcium 9.8 mg/dL (8.4-10.2); Carbon Dioxide 27 mmol/L (22-29); Chloride 107 mmol/L (96-108); Estimated Glomerular Filt Rate > 60; Glucose Random 88 mg/dL (60-115); Potassium 4.1 mmol/L (3.3-5.1); Sodium 141 mmol/L (135-145)
[2024-08-22 15:08] LABS: Vitamin D 25-OH Total 76.4 ng/mL (>30)
[2024-08-24 02:13] LABS: Follicle Stimulating Hormone 4.5 mIU/mL; Lutenizing Hormone 3.5 mIU/mL
== END 2024-08-22 12:48 | disposition home or self-care (01) ==
LOC: HO.WFDLDS 12:47
PROVIDERS: Visit Provider Family Medicine
DX: Z00.00 Encounter for general adult medical examination without abnormal findings (principal); F41.1 Generalized anxiety disorder; E28.2 Polycystic ovarian syndrome; E55.9 Vitamin D deficiency, unspecified
CPT/HCPCS: 36415; 80048; 81003; 82306; 83001; 83002

== ENCOUNTER 2024-09-14 10:46 | Outpatient (AMB) | payer OTHER, SELFPAY ==
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
== END 2024-09-14 11:08 | disposition home or self-care (01) ==
LOC: HO.HOP 10:46
PROVIDERS: PCP Family Medicine; Visit Provider Clinical Nurse Specialist Psychiatric/Mental Health
DX: F10.10 Alcohol abuse, uncomplicated (principal); F90.2 Attention-deficit hyperactivity disorder, combined type; F42.2 Mixed obsessional thoughts and acts
CPT/HCPCS: 99215

== ENCOUNTER → 2024-09-14 10:46 | Outpatient (BNVA) | payer OTHER, SELFPAY | PROVIDERS: PCP Family Medicine; Visit Provider Clinical Nurse Specialist Psychiatric/Mental Health ==

== ENCOUNTER 2024-09-17 09:49 | Outpatient (AMB) | payer OTHER, SELFPAY ==
--- NOTE | 2024-09-17 09:56 | A.OFFPC_ITS ---
Vital Signs 09/17/24 10:02 Height 5 ft 6.54 in Weight 154 lb 6 oz BMI 24.5 BP 132/76 Blood Pressure Location Rt brachial Position Sitting Respiration 16 Pulse 89 Pulse Source Pulse Oximeter Temp 98.8 F Temp Source Temporal Artery Scan Pulse Oximetry (%) 99 Oxygen Delivery Method Room Air Intake Visit Reasons: FU FMLA PW Intake Note: ext for FMLA pt mental health provider changed her meds around and she feels like she is getting lost in her head she said she will try to get used to her n ew medication change.pt did start to drink again but not heavily she did not take the risperidone due to drinking she did not want to mix her medication with alcohol Allergies lactose Allergy (Unknown, Uncoded 09/17/24 09:56) Unknown Tobacco use date assessed: 05/17/24 Dental Screening Dental Screen Date: 05/17/24 HPI FU FMLA PW HPI Details Pt presents to discuss anxiety/depression and FMLA paperwork for possible change of schedule/intermittent leave. Had seen psychiatry 09/14/24. She is on citalopram 30mg, hydroxyzine 25 mg t.i.d. prn but she notes she is on risperidone 0.25mg. Adderall 10mg continues to help her. Notes her mood has been improving. [facility] Medical History ADHD Raynaud disease Surgical History H/O wisdom tooth extraction Social History Housing: House Patient Tobacco Use Status: Former Tobacco user e-Cigarette/Vaping Use: Former Use Second Hand Smoke Exposure: No service: No Current occupational status: employed Current occupation: Head of circulation @ [employer] Current occupational exposures/hazards: No Cognitive needs: No Hearing needs: No Vision needs: Yes Questionnaire Thrive Questionnaire Date Thrive assessed: 08/22/24 I am a: Patient What is your living situation today?: I have a steady place to live Within the past 12 months, did the food you bought not last and you didn't have the money to get more?: Sometimes True Within the past 12 months, did you worry whether your food would run out before you got money to buy more?: Sometimes True Do you have trouble paying for medicines?: No Do you have trouble getting transportation to medical appointments?: No Do you have trouble paying your heating and electricity bill?: Yes Do you have trouble taking care of your child, family member or friend?: Yes Do you have trouble with day-to-day activities such as bathing, preparing meals, shopping, managing finances, etc.?: I choose not to answer this question Are you currently unemployed and looking for a job?: No Are you interested in more education?: Yes THRIVE Score: 3 LULU-7 AMB Questionnaire LULU-7 Date LULU - 7 assessed: 08/22/24 Source: Developed by Drs. Cody Valera, Katty Ramos, Ayan Yi and colleagues, with an educational aggie from [employer]. Review of Systems Const Denies chills, Denies fatigue, Denies fever(s), Denies headache(s) and Denies weakness ENT Denies dizziness and Denies headache(s) Card Denies dyspnea Resp Denies cough, Denies dyspnea, Denies wheezing and Denies other (shortness of breath) Musc Denies numbness and Denies tingling Neuro Denies dizziness, Denies headache(s), Denies numbness, Denies tingling and Denies weakness Psych Denies anxiety and Denies depression Endo Denies fatigue Aller/Immun Denies wheezing Physical exam (Primary Care) Vital Signs: Last Vital Signs Temp 98.8 F 09/17/24 10:02 Pulse 89 09/17/24 10:02 Resp 16 09/17/24 10:02 BP 132/76 09/17/24 10:02 Pulse Ox 99 09/17/24 10:02 Oxygen Delivery Method Room Air 09/17/24 10:02 BMI result Body Mass Index 24.5 Tobacco/Smoking Status: Tobacco use Status Tobacco use date assessed 05/17/24 09/17/24 10:05 Patient Tobacco Use Status Former Tobacco user 09/17/24 10:05 e-Cigarette/Vaping Use Former Use 09/17/24 10:05 Thrive Assessment: Date of Thrive Assessment Date Thrive assessed 08/22/24 09/17/24 10:05 Const General: well developed; No acute distress Nutritional Appearance: well nourished Orientation/consciousness: patient oriented x3 [facility] Head: Yes normocephalic and Yes atraumatic Eyes General: appearance normal, both eyes and all related structures Pupils: Equal, round and reactive pupils present EOM: EOMs intact bilaterally Resp Effort & Inspection: normal respiratory effort Auscultation: clear to auscultation bilaterally Cardio Rate: regular rate Rhythm: regular rhythm Heart sounds: S1 normal heart sound present, S2 normal heart sound present, no gallops, no murmurs and no rubs Neuro General: patient oriented x3 and gait normal Cranial nerves: Yes Equal, round and reactive pupils present Psych Affect: normal affect Coding Level of Care Code Est Pt Level 3 (85594) Diagnoses Anxiety with depression F41.8 ADHD (attention deficit hyperactivity disorder), combined type F90.2 Assessment & Plan Assessment & Plan (1) Anxiety with depression: Code(s): F41.8 - Other specified anxiety disorders Category: Medical Plan: Ongoing?anxiety?and?depression and?patient?remains?unable?to?work?effectively. She?does?however?show?increasing?insight?into?her?mental?health?disorders. Continue?current?medication Continue?follow-up?with?therapist?and?psych?med?provider Patient?is?on?FMLA?leave?and?I?am?recommending?she?continue?to?work?with?th erapist?and?psych?med?provider?to?adjust?her?medications?for?an?additional?2?mon ths. We?did?discuss?that?she?should?consider?whether?she?will?be?able?to?return?and?w e?can?review?in?2?months. 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 Plan FMLA?extended
[2024-09-17 10:02] VITALS: BP 132/76; PULSE 89; RESP 16; TEMP 37.1; O2SAT 99; BMI 24.5
== END 2024-09-17 10:57 | disposition home or self-care (01) ==
PROVIDERS: PCP Family Medicine; Visit Provider Family Medicine
DX: F41.8 Other specified anxiety disorders (principal); F90.2 Attention-deficit hyperactivity disorder, combined type; Z23 Encounter for immunization

== ENCOUNTER → 2024-09-17 09:49 | Outpatient (BNVA) | payer OTHER, SELFPAY | PROVIDERS: PCP Family Medicine; Visit Provider Family Medicine | DX: F41.8 Other specified anxiety disorders (principal); F90.2 Attention-deficit hyperactivity disorder, combined type; Z23 Encounter for immunization | CPT/HCPCS: 90471; 90656 ==

== ENCOUNTER 2024-11-09 14:25 | Outpatient (AMB) | payer OTHER, SELFPAY ==
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
== END 2024-11-09 15:13 | disposition home or self-care (01) ==
LOC: HO.HOP 14:25
PROVIDERS: PCP Family Medicine; Visit Provider Clinical Nurse Specialist Psychiatric/Mental Health
DX: F42.2 Mixed obsessional thoughts and acts (principal); F90.2 Attention-deficit hyperactivity disorder, combined type; F43.12 Post-traumatic stress disorder, chronic
CPT/HCPCS: 99215

== ENCOUNTER 2024-12-18 13:22 | Outpatient (AMB) | payer OTHER, SELFPAY ==
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
--- OUTSIDE RECORDS SUMMARY | 2024-12-18 14:18 | XMS_ITS | Clinical Summary ---
Author Organization [facility] Address [address] [place] [phone] Phone Care Team Providers Care Formulation Chemist Name Role Phone Unavailable Primary Care Provider Unavailabl e Immunizations Immunization Administration Dates Next Due DTP 07/30/1995,05/30/1995,03/30/1995 DTaP 5 02/09/2000,07/30/1996 H1N1 08/26/2009 HPV, Quadrivalent 12/12/2007,08/08/2007,06/06/20 07 Hep A, ped/adol 11/02/2013,05/18/2011 Hep B, ped/adol 01/29/1996,02/27/1995,01/28/1995 Hib (PRP-T) 07/30/1996, 5,05/30/1995,03/30 IPV 02/09/2000, 6,07/30/1995,05/30,03/30/1995 Influenza, injectable, quadr ivalent, preservative free 08/16/2014 Influenza, intranasal, trivalent 08/04/2012,08/31,08/12/2010 MMR 02/11/1999,04/29/1996 Meningococcal Conj (Menactra) MCV4P 07/27/2013,1 Tdap 06/06/2007 Varicella 07/26/2008,02/11/1999 Family History Relation Name Status Comments Father Alive Father: Alive a nd well Half-Brother Alive Half brother (P ): Alive and well Half-Sister Alive Half sister (P) : ADD Mother Alive Mother: , toml e branch block, cystic ovarian synd,PCOS, Other Family history of Hyperlipidemia, No family history of *CVA/Stroke, Family history of Obesity, Family history of *Dental caries, Family history of *Heart Disease, No family history of *Thrombophilia, Family history of Strabismus, Family history of Diabetes mellitus, Family history of *Sudden /[place] under 55, Family history of Heart attack, Family history of Asthma, Family history of Migraines Sister Alive Sister: Alive a nd well Social History Tobacco Use Types Packs/Day Years Used Date Smoking Tobacco: Never Comments:Never smoker Comments Unknown Sex and Gender Information Value Date Recorded Sex Assigned at Not on file Legal Sex Female 5:10 PM EDT Gender Identity Not on file Sexual Orientation Not on file Last Filed Vital Signs Vital Sign Reading Time Taken Comments Blood Pressure 128/87 06/17/2016 12:00 AM EDT Pulse 77 06/17/2016 12:00 AM EDT Temperature 36.7 ??C (98 ??F) 06/17/2016 12:00 AM EDT Respiratory Rate - - Oxygen Saturation - - Inhaled Oxygen Concentration - - Weight 61.2 kg (135 lb) 06/17/2016 12:00 AM EDT Height 168.1 cm (5' 6.2 ) 06/17/2016 12:00 AM ED T Body Mass Index 21.66 06/17/2016 12:00 AM EDT Plan of Treatment Health Maintenance Due Date Last Done Comments DTaP,Tdap,and Td Vaccines (7 - Td or Tdap) 06/06/2017 06/06/2007, 02/09/2000, 07/30/1996, Additional history exists Influenza Vaccines (#1) 2024 08/16/20 14, 08/04/2012, 09/09/2011, Additional history exists COVID-19 Vaccine ( season) 2024 Hepatitis B Vaccines Completed 01/29/1996, 02/27/1995, 01/28/1995 HIB Vaccines Completed 07/30/1996, 07/03, 05/30/1995, Additional history exists MMR Vaccines Completed 02/11/1999, 04/29/1996 IPV Vaccines Completed 02/09/2000, 07/03, 07/30/1995, Additional history exists HPV Vaccines Completed 12/12/2007, 07/2007, 06/06/2007 Varicella Vaccines Completed 07/26/2008, 02/11/1999 Meningococcal Vaccine Completed 07/27/2013, 007 Hepatitis A Vaccines Completed 11/02/2013, 05/18/20 11 Men B Vaccine Aged Out No longer elig ible based on patient's age to complete this topic Pneumococcal Vaccine Aged Out No long er eligible based on patient's age to complete this topic Procedures * Due to [place] law, this organization might not be sharing sensitive test results. Procedure Name Priority Date/Time Associated Diagnosis Comments CHLAMYDIA AND GONORRHEA, AMPLIFIED Routine 03/01/2016 2:16 PM EDT from Last 3 Months or Most Recently Relevant to Health Maintenance Results * Due to [place] law, this organization might not be sharing sensitive test results. * Chlamydia and Gonorrhoea, Amplified (03/01/2016 2:16 PM EDT) URINE CHLAMYDIA AMP PROBE NEGATIVE [facility] Comment: No Chlamydia Trachomatis RNA detected in this patient's sample (REFERENCE RANGE/NORMAL VALUE: NOT DETECTED) URINE GC AMP PROBE NEGATIVE [facility] Comment: No Neisseria Gonorrhoeae RNA detected in this patient's sample (REFERENCE RANGE/NORMAL VALUE: NOT DETECTED) NOTE: This test uses advertising designer-mediated amplification method to detect rRNA from C.Trachomatis and N.Gonorrhoeae. A negative result does not preclude infection. In the case of a negative urine result, testing of an endocervical(female) or urethral(male) specimen is recommended if there is high clinical suspicion of infection. The performance characteristics of this test have not been evaluated in children. The Aptima Combo2 assay is not intended for the evaluation of suspected sexual abuse or for other medico-legal indications. The ordering provider should assess if the patient had consensual sex without risk of sexual abuse. Consult the [facility] if needed. Contact phone number . Therapeutic failure or success cannot be determined with the Aptima Combo2 assay since nucleic acid may persist following appropriate antimicrobial therapy. The Centers for Disease Control and Prevention (CDC) recommends confirmatory retesting using culture or a different nucleic acid amplification test when positive results occur, if indicated. Testing performed or reported by [facility], a Service of [facility], [place] [address] CLIA ??[id number] Darrius Redman MD, PhD, Matrix Worker 03/01/2016 2:16 PM EDT Narrative [facility] - 03/01/2016 2:16 PM EDT URINE CHLAMYDIA GC AMP PROBE us Veronica Miranda MD LAB MICROBIOLOGY - GENERAL O RDERABLES Final Result [facility] [address] [place] [address], [place] from Last 3 Months or Most Recently Relevant to Health Maintenance
--- OUTSIDE RECORDS SUMMARY | 2024-12-18 14:18 | XMS_ITS | Encounter Summary ---
Author Organization [facility] Address [address] [place] [phone] Phone Care Team Providers Care Lining Caser Name Role Phone Unavailable Primary Care Provider Unavailabl e Encounter Details Date Type Department Care Team (Late st Contact Info) Description 01/29/2010 Documentation [facility] [address] [place] [address] Family Medicine, Physician [facility] [place] [address] Social History Tobacco Use Types Packs/Day Years Used Date Smoking Tobacco: Never Assessed Comments Unknown Sex and Gender Information Value Date Recorded Sex Assigned at Not on file Legal Sex Female 5:10 PM EDT Gender Identity Not on file Sexual Orientation Not on file documented as of this encounter Plan of Treatment Not on file documented as of this encounter Visit Diagnoses Not on filedocumented in this encounter
--- OUTSIDE RECORDS SUMMARY | 2024-12-18 14:18 | XMS_ITS | Clinical Summary ---
Author Organization [employer] Address [address] [place] [address] Care Team Providers Care Educational Paraprofessional Name Role Phone Unavailable Primary Care Provider Unavailabl e Social History Tobacco Use Types Packs/Day Years Used Date Smoking Tobacco: Never Assessed Comments Unknown Sex and Gender Information Value Date Recorded Sex Assigned at Female 08/30/2022 10:36 AM EDT Legal Sex Female 10:36 AM EDT Gender Identity Not on file Sexual Orientation Not on file Plan of Treatment Health Maintenance Due Date Last Done Comments Depression Screening 1994 Alcohol/Substance Use Screening 2006 Tobacco Screening 2006 Family Planning (PISQ) 2009 DTaP/Tdap/Td Vaccines (1 - Tdap) 2013 Hepatitis B Vaccines (1 of 3 - 19+ 3-dose series) 2013 Pap Smear 12/30/2015 COVID-19 Vaccine ( - 2023-2 5 season) 2024 Influenza Vaccine (#1) 2024 Zoster Vaccines (1 of 2) 2044 RSV Patients and Pa tients Aged 60 years or older (1 - 1-dose 75+ series) 2069 HIB Vaccines Aged Out No longer eligi ble based on patient's age to complete this topic HPV Vaccines Aged Out No longer eligi ble based on patient's age to complete this topic Hepatitis A Vaccines Aged Out No long er eligible based on patient's age to complete this topic IPV Vaccines Aged Out No longer eligi ble based on patient's age to complete this topic Meningococcal Vaccine Aged Out No terrance loida eligible based on patient's age to complete this topic Pneumococcal Vaccine: Pediat rics (0 to 5 Years) and At-Risk Patients (6 to 49) Years) Aged Out No longer eligible b ased on patient's age to complete this topic RSV under 20 months Aged Out No longe r eligible based on patient's age to complete this topic Rotavirus Vaccines Aged Out No longer eligible based on patient's age to complete this topic
--- OUTSIDE RECORDS SUMMARY | 2024-12-18 14:18 | XMS_ITS | Encounter Summary ---
Author Organization [employer] [facility] Address [address] [address] [address] [place] [address] Care Team Providers Care Hard Tile Setter Name Role Phone Unavailable Primary Care Provider Unavailabl e Encounter Details Date Type Department Care Team (Latest Contact Info) Description 09/11/2019 Abstract C CONVERSIONS Dental, Provider, DDS Social History Tobacco Use Types Packs/Day Years [...]
== END 2024-12-18 13:51 | disposition home or self-care (01) ==
LOC: HO.HOP 13:22
PROVIDERS: PCP Family Medicine; Visit Provider Clinical Nurse Specialist Psychiatric/Mental Health
DX: F42.2 Mixed obsessional thoughts and acts (principal); F90.2 Attention-deficit hyperactivity disorder, combined type; F43.12 Post-traumatic stress disorder, chronic; F41.1 Generalized anxiety disorder; F10.10 Alcohol abuse, uncomplicated
CPT/HCPCS: 99214

== ENCOUNTER 2025-01-21 14:29 | Outpatient (AMB) | payer OTHER, SELFPAY ==
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
== END 2025-01-21 17:03 | disposition home or self-care (01) ==
LOC: HO.HOP 14:29
PROVIDERS: PCP Family Medicine; Visit Provider Clinical Nurse Specialist Psychiatric/Mental Health
DX: F42.2 Mixed obsessional thoughts and acts (principal); F90.2 Attention-deficit hyperactivity disorder, combined type; F43.12 Post-traumatic stress disorder, chronic; F41.1 Generalized anxiety disorder; F10.10 Alcohol abuse, uncomplicated
CPT/HCPCS: 99215

== ENCOUNTER 2025-01-22 12:05 | Outpatient (AMB) | payer OTHER, SELFPAY ==
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
[2025-01-22 12:29] VITALS: BP 110/60; PULSE 78; RESP 14; TEMP 37.3; O2SAT 99; BMI 29.3
== END 2025-01-22 13:12 | disposition home or self-care (01) ==
LOC: HO.HMCFM 12:06
PROVIDERS: PCP Family Medicine; Visit Provider Family Medicine
DX: F41.8 Other specified anxiety disorders (principal); F90.2 Attention-deficit hyperactivity disorder, combined type

== ENCOUNTER → 2025-01-22 12:05 | Outpatient (BNVA) | payer OTHER, SELFPAY | PROVIDERS: PCP Family Medicine; Visit Provider Family Medicine | DX: F41.8 Other specified anxiety disorders (principal); F90.2 Attention-deficit hyperactivity disorder, combined type; Z79.899 Other long term (current) drug therapy | CPT/HCPCS: 96127 ==

== ENCOUNTER 2025-02-12 16:33 | Outpatient (AMB) | payer OTHER, SELFPAY ==
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
--- OUTSIDE RECORDS SUMMARY | 2025-02-12 19:01 | XMS_ITS | Clinical Summary ---
Author Organization [employer] Address [address] [place] [address] Care Team Providers Care Informatics Analyst Name Role Phone Unavailable Primary Care Provider [...] 5 season) 2024 Influenza Vaccine (#1) 2024 Cervical Cancer Screening 2024 HPV/Cotest 2024 Zoster Vaccines (1 of 2) 2044 [...]
--- OUTSIDE RECORDS SUMMARY | 2025-02-12 19:01 | XMS_ITS | Encounter Summary ---
Author Organization [facility] Address [address] [place] [phone] Phone Care Team Providers Care Sales Training Manager Name Role Phone Unavailable Primary Care Provider Unavailabl e Encounter Details Date Type Department Care Team (Late st Contact Info) Description 01/29/2010 [place] [facility] [place] [address] [place] [address] Family Medicine, Physician [facility] [place] [address] Social History Tobacco Use Types [...]
--- OUTSIDE RECORDS SUMMARY | 2025-02-12 19:01 | XMS_ITS | Encounter Summary ---
Author Organization [employer] [facility] Address [address] [place] [address] Care Team Providers Care Staining Machine Operator Name Role Phone Unavailable Primary Care Provider [...]
--- OUTSIDE RECORDS SUMMARY | 2025-02-12 19:01 | XMS_ITS | Clinical Summary ---
Author Organization [facility] Address [address] [place] [phone] Phone Care Team Providers Care Per Diem Physical Therapist Assistant Name Role Phone Unavailable Primary Care Provider [...] of Diabetes mellitus, Family history of *Sudden /IN under 55, Family history of Heart attack, [...] complete this topic Procedures * Due to [place] 51.com law, this organization might not be sharing sensitive test results. Procedure Name Priority Date/Time Associated Diagnosis Comments CHLAMYDIA AND GONORRHEA, AMPLIFIED Routine 03/01/2016 2:16 PM EDT from Last 3 Months or Most Recently Relevant to Health Maintenance Results * Due to [place] 51.[place] law, this organization might not be sharing sensitive test results. * Chlamydia and Gonorrhoea, Amplified (03/01/2016 2:16 PM EDT) URINE CHLAMYDIA AMP PROBE NEGATIVE [facility] Comment: No Chlamydia Trachomatis RNA detected in this patient's sample (REFERENCE RANGE/NORMAL VALUE: NOT DETECTED) URINE GC AMP PROBE NEGATIVE [facility] Comment: No Neisseria Gonorrhoeae RNA detected in this patient's sample (REFERENCE RANGE/NORMAL VALUE: NOT DETECTED) NOTE: This test uses commercial sales specialist-mediated amplification method to detect rRNA from C.Trachomatis [...] without risk of sexual abuse. Consult the [facility] if needed. Contact phone number . Therapeutic failure or success cannot be determined with the Aptima Combo2 assay since nucleic acid may persist following appropriate antimicrobial therapy. The Centers for Disease Control and Prevention (CDC) recommends confirmatory retesting using culture or a different nucleic acid amplification test when positive results occur, if indicated. Testing performed or reported by [facility], a Service of [facility], [place], [place] [address] CLIA ??[id number] Darrius Redman MD, PhD, Traffic Sergeant 03/01/2016 2:16 PM EDT Narrative [facility] - 03/01/2016 2:16 PM EDT URINE CHLAMYDIA GC AMP PROBE us Veronica Miranda MD LAB MICROBIOLOGY - GENERAL O RDERABLES Final Result [facility] [address] [place] [address], [place] from Last 3 Months or Most Recently Relevant to Health Maintenance
== END 2025-02-12 16:50 | disposition home or self-care (01) ==
LOC: HO.HOP 16:33
PROVIDERS: PCP Family Medicine; Visit Provider Clinical Nurse Specialist Psychiatric/Mental Health
DX: F42.2 Mixed obsessional thoughts and acts (principal); F10.10 Alcohol abuse, uncomplicated; F90.2 Attention-deficit hyperactivity disorder, combined type; F43.12 Post-traumatic stress disorder, chronic; F41.1 Generalized anxiety disorder
CPT/HCPCS: 99215

== ENCOUNTER 2025-02-26 12:02 | Outpatient (AMB) | payer OTHER, SELFPAY ==
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
--- OUTSIDE RECORDS SUMMARY | 2025-02-26 14:07 | XMS_ITS | Encounter Summary ---
Author Organization [facility] Address [address] [place] [phone] Phone Care Team Providers Care Foundation Stage Teacher Name Role Phone Unavailable Primary Care Provider Unavailabl e Encounter Details Date Type Department Care Team (Late st Contact Info) Description 01/29/2010 Documentation [facility] [place] Family Medicine [address] [place] [address] Family Medicine, Physician [facility] [place] [address] Social History Tobacco Use Types [...]
--- OUTSIDE RECORDS SUMMARY | 2025-02-26 14:07 | XMS_ITS | Clinical Summary ---
Author Organization [employer] Address [address] [facility] [address] [place] [address] Care Team Providers Care Corn Lab Technician Name Role Phone Unavailable Primary Care Provider [...]
--- OUTSIDE RECORDS SUMMARY | 2025-02-26 14:07 | XMS_ITS | Clinical Summary ---
Author Organization [facility] Address [address] [place] [phone] Phone Care Team Providers [employer] Sales Executive Name Role Phone Unavailable Primary Care Provider [...] of Diabetes mellitus, Family history of *Sudden /[place] under 55, Family history of Heart attack, [...] complete this topic Procedures * Due to [place] pMDsoft law, this organization might not be sharing sensitive test results. Procedure Name Priority Date/Time Associated Diagnosis Comments CHLAMYDIA AND GONORRHEA, AMPLIFIED Routine 03/01/2016 2:16 PM EDT from Last 3 Months or Most Recently Relevant to Health Maintenance Results * Due to [place] pMDsoft law, this organization might not be sharing sensitive test results. * Chlamydia and Gonorrhoea, Amplified (03/01/2016 2:16 PM EDT) URINE CHLAMYDIA AMP PROBE NEGATIVE [facility] Comment: No Chlamydia Trachomatis RNA detected in this patient's sample (REFERENCE RANGE/NORMAL VALUE: NOT DETECTED) URINE GC [facility]BE [facility]IVE [facility] Comment: No Neisseria Gonorrhoeae RNA detected in this patient's sample (REFERENCE RANGE/NORMAL VALUE: NOT DETECTED) NOTE: This test uses cloth packer-mediated amplification method to detect rRNA from C.Trachomatis [...] without risk of sexual abuse. Consult the [facility] if needed. Contact phone number . Therapeutic failure or success cannot be determined with the Aptima Combo2 assay since nucleic acid may persist following appropriate antimicrobial therapy. The Centers for Disease Control and Prevention (CDC) recommends confirmatory retesting using culture or a different nucleic acid amplification test when positive results occur, if indicated. Testing performed or reported by [facility], a Service of [facility], [place] [address] CLIA ??[id number] Darrius Redman MD, PhD, Injection Molding Engineer 03/01/2016 2:16 PM EDT Narrative [facility] - 03/01/2016 2:16 PM EDT URINE CHLAMYDIA GC AMP PROBE us Veronica Miranda MD LAB MICROBIOLOGY - GENERAL O RDERABLES Final Result [facility] [address] [place] [address], [place] from Last 3 Months or Most Recently Relevant to Health Maintenance
--- OUTSIDE RECORDS SUMMARY | 2025-02-26 14:07 | XMS_ITS | Encounter Summary ---
Author Organization [facility] Address [address] [place] [address] Care Team Providers [employer] Engineer Name Role Phone Unavailable Primary Care Provider [...]
== END 2025-02-26 12:03 | disposition home or self-care (01) ==
LOC: HO.HOP 12:02
PROVIDERS: PCP Family Medicine; Visit Provider Clinical Nurse Specialist Psychiatric/Mental Health
DX: F42.2 Mixed obsessional thoughts and acts (principal); F10.10 Alcohol abuse, uncomplicated; F43.12 Post-traumatic stress disorder, chronic; F90.2 Attention-deficit hyperactivity disorder, combined type; F41.1 Generalized anxiety disorder
CPT/HCPCS: 99214

== ENCOUNTER → 2025-02-26 12:02 | Outpatient (BNVA) | payer OTHER, SELFPAY | PROVIDERS: PCP Family Medicine; Visit Provider Clinical Nurse Specialist Psychiatric/Mental Health ==

== ENCOUNTER 2025-03-28 15:08 | Outpatient (AMB) | payer OTHER, SELFPAY ==
--- OUTSIDE RECORDS SUMMARY | 2025-03-28 15:10 | XMS_ITS | Clinical Summary ---
Author Organization [employer] Address [address] [place] [address] Care Team Providers Care Ross Carrier Driver Name Role Phone Unavailable Primary Care Provider [...] Date Last Done Comments Depression Screening 1994 Disability Screening 1994 Alcohol/Substance Use Screening 2006 Tobacco [...] patient's age to complete this topic Meningococcal B Vaccine Aged Out No l onger eligible based on patient's age to complete [...]
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
== END 2025-03-28 15:08 | disposition home or self-care (01) ==
LOC: HO.HOP 15:08
PROVIDERS: PCP Family Medicine; Visit Provider Clinical Nurse Specialist Psychiatric/Mental Health
DX: F42.2 Mixed obsessional thoughts and acts (principal); F10.10 Alcohol abuse, uncomplicated; F90.2 Attention-deficit hyperactivity disorder, combined type; F43.12 Post-traumatic stress disorder, chronic; F41.1 Generalized anxiety disorder
CPT/HCPCS: 99214

== ENCOUNTER → 2025-03-28 15:08 | Outpatient (BNVA) | payer OTHER, SELFPAY | PROVIDERS: PCP Family Medicine; Visit Provider Clinical Nurse Specialist Psychiatric/Mental Health ==